=== PATIENT | female | born 1935 | race Caucasian/White ===

== ENCOUNTER 2019-07-27 16:21 | Emergency (ER) | payer OTHER ==
[~2019-07-27] VITALS: Ht 152.4 cm; Wt 49.9 kg
[~2019-07-27 16:21] MED LIST: GABAPENTIN800 MG; LOTREL 10-20 MG1 CAP; PROZAC20 MG; RESTORIL30 M1
== END 2019-07-27 23:34 | disposition home or self-care (01) ==
LOC: ER 16:21
DX: A08.39 Other viral enteritis (principal); E86.0 Dehydration

== ENCOUNTER 2023-02-20 17:08 | Emergency (ER) | payer OTHER ==
[~2023-02-20] VITALS: Ht 152.4 cm; Wt 41.7 kg
[2023-02-20] MEDS ORDERED: SIMVASTATIN20 MG PO (17:16)
[2023-02-20] MEDS ORDERED: PROTONIX20 MG PO (17:17)
[2023-02-20] MEDS ORDERED: CARAFATE1 GM/10 ML PO (20:21)
[2023-02-20] MEDS ORDERED: PEPCID AC20 MG PO (20:21)
[2023-02-20] MEDS ORDERED: LEVSIN/SL0.125 MG SL (20:21)
== END 2023-02-20 20:45 | disposition home or self-care (01) ==
LOC: ER 17:08
DX: K29.60 Other gastritis without bleeding (principal); I10 Essential (primary) hypertension

== ENCOUNTER 2023-06-06 18:10 | Emergency (ER) | payer OTHER ==
[~2023-06-06] VITALS: Ht 152.4 cm; Wt 42.2 kg
[~2023-06-06 18:10] MED LIST changes: +ALPRAZOLAM1 MG; +BENAZEPRIL HCL20 MG; +CARAFATE1 GM/10 ML PO; +DEXLANSOPRAZOLE60 MG; +HYDROCORTISO453.6 G3; +LEVSIN/SL0.125 MG SL; +MONTELUKAST SOD10 MG; +NORVASC2.5 MG; +PEPCID AC20 MG PO; +PROTONIX20 MG PO; +SERTRALINE HCL50 MG; +SIMVASTATIN20 MG PO
== END 2023-06-06 23:52 | disposition home or self-care (01) ==
LOC: ER 18:10
DX: K52.89 Other specified noninfective gastroenteritis and colitis (principal); R10.9 Unspecified abdominal pain; Z20.822 Contact with and (suspected) exposure to COVID-19; I10 Essential (primary) hypertension

== ENCOUNTER 2023-11-13 12:30 | Emergency (ER) | payer OTHER ==
[~2023-11-13] VITALS: Ht 152.4 cm; Wt 43.5 kg
[2023-11-13 14:44] LABS: HEMOGLOBIN 12.7 g/dL (12.0-15.00); MEAN CELL VOLUME 85.6 fL (80.00-100.00); MEAN CORPUSCULAR HEMOGLOBIN 28.6 pg (27.00-32.0); MEAN CORPUSCULAR HGB CONC 33.4 g/dl (32.0-36.0); PLATELET COUNT 368 K/uL (150-450); RED BLOOD COUNT 4.44 M/uL (4.00-6.00); RED CELL DISTRIBUTION WIDTH 14.3 % (11.5-14.5)
[2023-11-13 15:04] LABS: CALCIUM 9.6 mg/dL (8.5-10.1); CREATININE SERUM 1.21 mg/dL (0.55-1.02); GFR 41.99; POTASSIUM 4.35 mEq/L (3.5-5.1)
[2023-11-13 17:50] LABS: PH,URINE 5.5 (5.0-8.0); URINE APPEARANCE Clear; URINE BILIRRUBIN Negative (NEGATIVE); URINE BLOOD Negative; URINE COLOR Yellow; URINE GLUCOSE Negative (NEGATIVE); URINE LEUKOCYTE Trace; URINE NITRATE Negative; URINE PROTEIN 30 (NEGATIVE); URINE UROBILINOGEN 0.2 E.U./dl
[2023-11-13 17:55] LABS: URINE BACTERIA 65.5 uL (0.0-1933); URINE EPITHELIAL CELLS 44.5 uL (0.0-38.8); URINE RBC 6.7 uL (0.0-20.8); URINE WBC 35.8 uL (0.0-23.2)
== END 2023-11-13 19:54 | disposition home or self-care (01) ==
LOC: ER 12:31
PROVIDERS: Emergency Medicine
DX: K52.89 Other specified noninfective gastroenteritis and colitis (principal); R11.10 Vomiting, unspecified; I10 Essential (primary) hypertension
CPT/HCPCS: 36415; 96365; 96366; 99282; J2405; J3490 ×2; J7030

== ENCOUNTER 2024-01-26 10:02 | Emergency (ER) | payer OTHER ==
[~2024-01-26] VITALS: Ht 152.4 cm; Wt 39.9 kg
[2024-01-26] MEDS ORDERED: ONDANSETRON HCL 2 MG/ML VIAL IV STA (11:31)
[2024-01-26] MEDS ORDERED: FAMOTIDINE IV PUSH SCH (11:31)
[2024-01-26] MEDS ORDERED: 0.9 % SODIUM CHLORIDE 1,000 ML IV SCH (11:45)
[2024-01-26 12:09] LABS: HEMATOCRIT 34.4 % (36.0-45.00); HEMOGLOBIN 11.5 g/dL (12.0-15.00); MEAN CORPUSCULAR HEMOGLOBIN 28.7 pg (27.00-32.0); MEAN CORPUSCULAR HGB CONC 33.4 g/dl (32.0-36.0); PLATELET COUNT 317 K/uL (150-450); RED CELL DISTRIBUTION WIDTH 14.6 % (11.5-14.5)
[2024-01-26 14:00] LABS: PH,URINE 5.5 (5.0-8.0); URINE APPEARANCE Clear; URINE BILIRRUBIN Negative (NEGATIVE); URINE BLOOD Negative; URINE COLOR Yellow; URINE GLUCOSE Negative (NEGATIVE); URINE LEUKOCYTE Small; URINE NITRATE Negative; URINE PROTEIN Negative (NEGATIVE); URINE UROBILINOGEN 0.2 E.U./dl
[2024-01-26 14:05] LABS: URINE BACTERIA 94.4 uL (0.0-1933); URINE EPITHELIAL CELLS 16.6 uL (0.0-38.8); URINE RBC 3.7 uL (0.0-20.8); URINE WBC 40.3 uL (0.0-23.2)
[2024-01-26 14:06] LABS: CALCIUM 9.6 mg/dL (8.5-10.1); CREATININE SERUM 0.86 mg/dL (0.55-1.02); GFR 62.27; POTASSIUM 4.41 mEq/L (3.5-5.1)
[2024-01-26 14:42] LABS: URINE EPITHELIAL CELLS 0-4 /HPF
[2024-01-27] MEDS ORDERED: FAMOTIDINE/PF 20 MG in 0.9 % SODIUM CHLORIDE 8 ML IV SCH (09:00)
== END 2024-01-26 16:21 | disposition home or self-care (01) ==
LOC: ER 10:02
PROVIDERS: Emergency Medicine
DX: K52.89 Other specified noninfective gastroenteritis and colitis (principal); R10.9 Unspecified abdominal pain; I10 Essential (primary) hypertension
CPT/HCPCS: 36415; 96365; 96366; 99282; J2405; J3490 ×2; J7030

== ENCOUNTER 2025-02-24 10:38 | Emergency (ER) | payer OTHER ==
[~2025-02-24] VITALS: Ht 152.4 cm; Wt 39.5 kg
[2025-02-24 10:46] VITALS: BP 136/67; O2SAT 97
[2025-02-24 13:28] LABS: HEMATOCRIT 34.1 % (36.0-45.00); HEMOGLOBIN 11.3 g/dL (12.0-15.00); MEAN CELL VOLUME 87.9 fL (80.00-100.00); MEAN CORPUSCULAR HEMOGLOBIN 29.2 pg (27.00-32.0); MEAN CORPUSCULAR HGB CONC 33.2 g/dl (32.0-36.0); PLATELET COUNT 275 K/uL (150-450); RED BLOOD COUNT 3.88 M/uL (4.00-6.00); RED CELL DISTRIBUTION WIDTH 14.2 % (11.5-14.5)
[2025-02-24 14:14] LABS: COVID-19 AG NEGATIVE (NEGATIVE)
[2025-02-24 14:17] LABS: INFLUENZA A AG NEGATIVE (NEGATIVE)
[2025-02-24] MEDS ORDERED: GILTUSS COUGH-118 M1 PO (15:54)
[2025-02-24] MEDS ORDERED: ACETAMINOPHEN500 M1 PO (15:55)
[2025-02-24] MEDS ORDERED: GUAIFENESIN/DEXTROMETHORPHAN 100MG/10ML BLIST.PACK PO ONE (16:15)
== END 2025-02-24 16:17 | disposition home or self-care (01) ==
LOC: ER 10:39
PROVIDERS: Preventive Medicine Public Health & General Preventive Medicine
DX: B34.9 Viral infection, unspecified (principal); Z20.822 Contact with and (suspected) exposure to COVID-19; I10 Essential (primary) hypertension